=== PATIENT | female | born 1975 | race Caucasian/White ===

== ENCOUNTER 2022-08-18 17:03 | Emergency (ER) | payer MEDICAID, SELFPAY ==
[2022-08-18 17:13] VITALS: BP 114/74; PULSE 79; RESP 18; TEMP 36.4; O2SAT 95; BMI 32.1
--- NOTE | 2022-08-18 17:44 | ED_ITS ---
HPI - General Adult General Chief complaint: Skin/Abscess/Foreign Body Stated complaint: swelling and bruised under armpit area Time Seen by Provider: 08/18/22 17:32 History of Present Illness HPI narrative: Woke up on Fri with painful arnpits. Saw that they were bruised, hurt to touch. As the week progressed, started getting lumps in her armpits and today she has swelling in both armpits. Has not been ill. No recent vaccines, bites or injuries that she is aware of 46-year-old woman presenting to the emergency department with complaint of pain and bumps in both armpits. This is now about 4th day. She has never had this prior. Has not had cystic eruptions elsewhere. There has been no drainage in she has had no fever. Just really hurts to lower her arms now. She does admit that she shaves her armpits which is evident on physical exam. Related Data Home Medications Medication Instructions Recorded Confirmed No Known Home Medications 08/18/22 08/18/22 Allergies Allergy/AdvReac Type Severity Reaction Status Date / Time Penicillins Allergy Hives Verified 08/18/22 17:18 Review of Systems Status of ROS: Reports: 6 or more systems reviewed and unremarkable except as noted in History and below PFSH PFS Social History Smoking Status: Current every day smoker What tobacco products do you use: cigarettes Smoking packs per day: 0.5 Smoking cigarettes per day: 10.0 Do you use any of these nicotine containing products: None Second hand tobacco smoke exposure: No How often do you have a drink containing alcohol: monthly or less How many standard drinks containing alcohol do you have on a typical day: 1 or 2 AUDIT-C Alcohol total score: 1 Non-prescribed substance use: denies use Exam Narrative: Exam Narrative: Pleasant. NAD. Keeps arms somewhat elevated at the shoulders. Breathing easily. I do not see evidence of current cystic acne. Examination of the armpits does not reveal cellulitic change really. There are small eruptions consistent with folliculitis; trace purulence at each point. Faintly erythematous surrounding. Beneath this are BB-sized swellings I would guesstimate. These are in both armpits. She is partially shaved here. Const: Vital Signs, click to edit/add: Vital Signs - 24 hr 08/18/22 17:13 Temperature 97.6 F Pulse Rate [Pulse Oximeter] 79 Respiratory Rate 18 Blood Pressure [Ri ght Upper Arm] 114/74 Pulse Oximetry 95 Documenting provider has reviewed patient's vital signs: yes Course Vital Signs Vital signs: Initial Vital Signs Temperature 97.6 F 08/18/22 17:13 Temperature Source Temporal Artery Scan 08/18/22 17:13 Pulse Rate 79 08/18/22 17:13 Respiratory Rate 18 08/18/22 17:13 Blood Pressure 114/74 08/18/22 17:13 Blood Pressure Mean 87 08/18/22 17:13 Blood Pressure Position Sitting 08/18/22 17:13 Pulse Oximetry 95 08/18/22 17:13 Vital Signs Temperature 97.6 F 08/18/22 17:13 Pulse Rate 79 08/18/22 17:13 Respiratory Rate 18 08/18/22 17:13 Blood Pressure 114/74 08/18/22 17:13 Pulse Oximetry 95 08/18/22 17:13 Temperature 97.6 F 08/18/22 17:13 Pulse Rate 79 08/18/22 17:13 Respiratory Rate 18 08/18/22 17:13 Blood Pressure 114/74 08/18/22 17:13 Pulse Oximetry 95 08/18/22 17:13 Medical Decision Making MDM Narrative Medical decision making narrative: This looks to be a folliculitis with localized eruptions. Nothing fluctuant or large enough to warrant drainage. I think antibiotics would be a good idea at this point. She would like something more than ibuprofen acetaminophen for pain as has not been enough. This is having trouble sleeping and is not prone to keeping her arms elevated the way they need to be to achieve comfort. See patient discharge plan Medical Records Medical records reviewed: Yes I reviewed the patient's medical records Discharge Plan Discharge Clinical Impression: Folliculitis Patient Disposition: Home, Self-Care Condition: Stable Instructions: Folliculitis (ED) Additional Instructions: I do think you will probably have to avoid shaving through the remainder of the summer. As I said maybe a number 1 shaving attachment would be helpful ;) Can continue to take ibuprofen or acetaminophen. Remember that each tablet of Percocet contains 325 mg of acetaminophen. Cephalexin and Percocet from [employer]. Might also consider using Hibiclens as soap in affected areas with shower 2 to 3 times a week. Be seen otherwise for marked increase in pain/redness/swelling, fever. Considering trajectory, it might get a little bit more inflamed over the next day or 2 until antibiotics catch up. Prescriptions: No Action No Known Home Medications Stand Alone Forms: MyHealth Info Instructions
--- OUTSIDE RECORDS SUMMARY | 2022-08-18 18:10 | XMS_ITS | Continuity of Care Document ---
Author Name Unknown Organization [facility] Address [address] [address] [place] [address] Phone Care Team Providers Care Loading Supervisor Name Role Phone Savanna Hernández CRNA Unavailable Unavaila ble Allergies, Adverse Reactions, Alerts Substance Reaction Status Criticality PENICILLIN Active No Information gabapentin Active No Information Medications Medication Instructions Dosage Effective Dates (start - stop) Status Comments sucralfate 1 gram tablet take 1 tablet by oral route 4 times every day on an empty stomach 1 hour before meals and at bedtime 1 G - Active omeprazole 20 mg tablet,delayed release take 1 by oral route every day 1 - Active Procedures Procedure Date Ugi Endo; W/bx 1/mx Level Iv-surg Path Gross/micro 21 New Level 4 Advance Directives Directive Yes / No Effective Date File Name No Information Encounters Encounter Description Practice Location Reason(s) For Visit Diagnoses Date Provider Providers Copied on Encounter [facility], [address] [address], [place], [place], [id number], [place] tel:[phone] [facility] No Information Betty Crorales. [address] [facility], [facility] [place], [id number], [place]. tel:[phone] Referring Provider: Solomon Chapman MD X, [address] [facility] [address], [place], [address] . tel:[phone] [facility], [address] [address], [place], [place], [id number], [place] tel:[phone] [facility] Right upper quadrant abdominal painOther diseases of stomach and duodenum Ari Carbajal. [address] [facility], [facility] [address], [place], [place], [id number], [place]. tel:[phone] Referring Provider: Troy Gilliam MD, [address] [place] [address], [id number]. tel:[phone] [facility] Level 4 [facility], [address] [address], [place], [place], [id number], [place] tel:[phone] [facility] GI Symptoms or Concerns (chief complaint) Abdominal pain in femaleColon cancer screening Leigh Leon. [address] [facility], [facility] [address], [place], [place], [id number], [place]. tel:[phone] Referring Provider: Troy Gilliam MD, [address] [place] [address], [id number]. tel:[phone] [facility], [address] [address], [place], [place], [id number], [place] tel:[phone] [facility] No Information Tiesha Solorio. [address] [facility], [facility] [address], [place], [place], [id number], [place]. tel:[phone] Family History Family Member Type Diagnosis Age At Onset Mother Problem (finding) diverticulitis of colon Immunizations Vaccine Date Status Comments tetanus and diphtheria toxoi ds, adsorbed, preservative free, for adult use (5 Lf of tetanus toxoid and 2 Lf of diphtheria toxoid) administered Note: [facility] bi-direct ional interface ; Source: Other Registry tetanus toxoid, reduced diphtheria toxoid, and acellular pertussis vaccine, adsorbed administered Note: [facility] b i-directional interface ; Source: Other Registry tetanus and diphtheria toxoi ds, adsorbed, preservative free, for adult use (2 Lf of tetanus toxoid and 2 Lf of diphtheria toxoid) administered Note: [facility] bi-direct ional interface ; Source: Other Registry Payers Payer name Insurance type Covered green party ID Authordwight tidodie(s) No Information Social History Type Description Quantity Date Captured Comments Sex Female Smoking Status No Information Chief Complaint And Reason For Visit No Information Reason For Referral Reason For Referral No Information Plan Of Treatment Date Type Action Status Referral Ordered: Colonoscopy Appointment date/timeframe: 02/15/2021 ordered History Of Present Illness Encounter Date Complaint History Of Prese nt Illness GI Symptoms or Concerns This was a virtual visit with Ms. Milka Vernon. She consented to proceed with a virtual visit. She was at home by herself for the visit. We spoke 40 minutes and I spent additional time reviewing her chart and coordinating her care.This is in regard to abdominal pain. She states it is located on the right side under her ribcage. The pain comes on right after eating. She says she usually takes ibuprofen on a daily basis for chronic headaches as well as Tylenol chronically, until just about 10 months ago. The pain started a few months ago. Workup so far has included H. pylori testing, which she tells me was negative. She also underwent an abdominal ultrasound at [facility], which she tells me was inconclusive. So she underwent a HIDA scan with ejection fraction. I do have the report of that and it was normal with an ejection fraction of 88%. She has been taking omeprazole once a day and sucralfate twice a day. She does not think these medications have been helpf Functional Status Date Functional Assessmen t No Information Instructions Date Instruction Additional Infor noemi Gastritis Related to Right upper quadrant abdominal pain 1. We will proceed w ith an upper endoscopy to evaluate for inflammation or ulceration in the stomach or the small intestine.2. She will continue omeprazole and sucralfate as-is for now.3. Avoid NSAIDs.4. Next steps will depend on what the upper endoscopy shows.5. We will also do colonoscopy at the time of the upper endoscopy for colon cancer screening purposes. Related to Abdominal pain in female Assessments Type Assessment Date No Information Patient Care Teams Name Effective Dates (start - stop) Status Members No Information
== END 2022-08-18 18:34 | disposition home or self-care (01) ==
LOC: ED 18:09
PROVIDERS: Emergency Provider Family Medicine
DX: L73.9 Follicular disorder, unspecified (principal)
CPT/HCPCS: 99282; 99283

== ENCOUNTER 2023-04-12 21:32 | Emergency (ER) | payer BC, SELFPAY ==
[2023-04-12 21:42] VITALS: BP 136/96; PULSE 79; RESP 16; TEMP 36.1; O2SAT 97; BMI 36.9
--- NOTE | 2023-04-12 22:03 | ED_ITS ---
HPI - General Adult General Chief complaint: Abdominal Pain Stated complaint: Abdominal Pain Time Seen by Provider: 04/12/23 22:03 History of Present Illness HPI narrative: R upper quadrent abd. pain started about 1.5hours ago. pain comes and goes in waves and feels sharp. no hx of abd. surgery or similar events in the past. no changes in bowel or bladder. 47-year-old woman presenting to the emergency department complaint of right upper abdominal pain. Abrupt onset of sharp upper abdominal pain coming up on 2 hours now. Has to hunch forward when it builds. Seems to come in waves. Colicky. But persistent. Does not usually struggle with heartburn. Has had some nausea. No fever. No vomiting. Had eaten some hours before. Does not have any particular food intolerances. No dysuria frequency urgency. No hematuria. No personal or family history of gallbladder disease. Denies constipation. No diarrhea. Related Data Home Medications Medication Instructions Recorded Confirmed No Known Home Medications 08/18/22 08/18/22 Allergies Allergy/AdvReac Type Severity Reaction Status Date / Time Penicillins Allergy Hives Verified 08/18/22 17:18 Review of Systems Status of ROS: Reports: 6 or more systems reviewed and unremarkable except as noted in History and below [facility] Social History Smoking Status: Current every day smoker What tobacco products do you use: cigarettes Smoking packs per day: 0.5 Smoking cigarettes per day: 10.0 Do you use any of these nicotine containing products: None Second hand tobacco smoke exposure: No How often do you have a drink containing alcohol: monthly or less How many standard drinks containing alcohol do you have on a typical day: 1 or 2 AUDIT-C Alcohol total score: 1 Non-prescribed substance use: denies use Exam Narrative: Exam Narrative: Accompanied by . She is clearly uncomfortable. Sitting hunched over in exam bed. Skin is warm and dry. Lower extremities are without edema. Well-perfused peripherally. Breathing easily. Lungs are clear. Heart in regular rate and rhythm. Abdomen with normoactive bowel sounds is soft without peritoneal sides. Overweight. She is tender to palpation in the epigastrium and her into right upper quadrant as well. Negative Lacy's. No flank pain. Oropharynx is moist. Const: Vital Signs, click to edit/add: Vital Signs - 24 hr 04/12/23 21:42 Temperature 97 F L Pulse Rate [Pulse Oximeter] 79 Respiratory Rate 16 Blood Pressure [Ri ght Upper Arm] 136/96 H Pulse Oximetry 97 Oxygen Delivery Me thod Room Air Documenting provider has reviewed patient's vital signs: yes Course Vital Signs Vital signs: Initial Vital Signs Temperature 97 F L 04/12/23 21:42 Temperature Source Temporal Artery Scan 04/12/23 21:42 Pulse Rate 79 04/12/23 21:42 Respiratory Rate 16 04/12/23 21:42 Blood Pressure 136/96 H 04/12/23 21:42 Blood Pressure Mean 109 H 04/12/23 21:42 Blood Pressure Position Sitting 04/12/23 21:42 Pulse Oximetry 97 04/12/23 21:42 Oxygen Delivery Method Room Air 04/12/23 21:42 Vital Signs Temperature 97 F L 04/12/23 21:42 Pulse Rate 79 04/12/23 21:42 Respiratory Rate 16 04/12/23 21:42 Blood Pressure 136/96 H 04/12/23 21:42 Pulse Oximetry 97 04/12/23 21:42 Oxygen Delivery Method Room Air 04/12/23 21:42 Temperature 97 F L 04/12/23 21:42 Pulse Rate 79 04/12/23 21:42 Respiratory Rate 16 04/12/23 21:42 Blood Pressure 136/96 H 04/12/23 21:42 Pulse Oximetry 97 04/12/23 21:42 Oxygen Delivery Method Room Air 04/12/23 21:42 Medications Administered Medications: Discontinued Medications Generic Name Dose Route Start Last Admin Trade Name Freq PRN Reason Stop Dose Admin Sodium Chloride 1,000 mls @ 1,000 mls/hr 04/12/23 22:11 04/12/23 23:36 0.9 % Sodium Chloride 1000 Ml IV 04/12/23 23:10 Infused .Q1H ONE Infusion Ketorolac Tromethamine 30 mg 04/12/23 22:11 04/12/23 22:35 Ketorolac 30 Mg/Ml Inj IVP 04/12/23 22:12 30 mg ONCE ONE Administration Morphine Sulfate 4 mg 04/12/23 22:11 04/12/23 22:36 Morphine 4 Mg/Ml Inj IVP 04/12/23 22:12 4 mg ONCE ONE Administration Ondansetron HCl 4 mg 04/12/23 22:11 04/12/23 22:36 Ondansetron 2 Mg/Ml Inj IVP 04/12/23 22:12 4 mg ONCE ONE Administration Medical Decision Making MDM Narrative Medical decision making narrative: Reproducibility does suggest more intra-abdominal process than cardiac. She does not drink alcohol. Think less likely pancreatic and more likely biliary colic. Potentially life-threatening aneurysm. No radicular symptoms. Could simply be some GERD with esophageal irritation. Check labs. Give IV fluids. She is uncomfortable enough I would initially try to control this pain with morphine. Ordering morphine ketorolac and Zofran. Overall improved though starts to build a little bit over time in the emergency department. Labs are reassuring though with slightly elevated ALT. Normal D- dimer less likely vascular issue. Urinalysis without evidence of infection I did place bedside ultrasound/point of care. Appears to me that there is some gallbladder sludge. Negative Lacy's. I can not appreciate thickened or inflamed gallbladder wall. We did talk about requesting formal ultrasound here today. Think this also can be followed up outpatient. Her preference was to return home. Will try to arrange outpatient ultrasound. See patient discharge plan Lab Data Lab results reviewed: Yes I reviewed the patient's lab results Labs: Lab Results 04/12/23 04/12/23 04/12/23 Range/Units 22:12 22:15 22:15 WBC 9.74 (4.50-11.00) K/uL RBC 5.10 (4.00-5.20) m/uL Hgb 15.1 (12.0-16.0) gm/dL Hct 44.7 (33.0-51.0) % MCV 88 (80-100) fL MCH 30 (26-34) pg MCHC 34 (32-36) gm/dL RDW Coeff of Inez 12.3 (11.5-15.5) % Plt Count 225 (140-440) K/uL Neut % (Auto) 54.5 (42.0-72.0) % Lymph % (Auto) 35.9 (20-44) % [place] % (Auto) 5.7 (0.0-11.0) % Eos % (Auto) 3.5 (0.0-7.0) % Baso % (Auto) 0.3 (0.0-3.0) % Neut # (Auto) 5.30 (1.7-7.0) K/uL Lymph # (Auto) 3.50 H (0.90-2.90) K/uL [place] # (Auto) 0.60 (0.00-0.90) K/UL Eos # (Auto) 0.34 (0.00-0.50) K/uL Baso # (Auto) 0.03 (0.00-0.30) K/uL Abs Immat Gran (auto) 0.01 (0.00-0.30) K/uL Imm/Tot Granulo (auto) 0.1 % D-Dimer Quant (PE/DVT) 0.36 (0.00-0.50) ug/ml Sodium Cancelled 139 Potassium Cancelled Chloride Carbon Dioxide Anion Gap BUN Creatinine Estimated Creat Clear Estimated GFR Glucose Calcium Total Bilirubin (0.1-1.5) mg/dL Direct Bilirubin (0.0-0.5) mg/dL AST (12-35) U/L ALT (4-35) U/L Alkaline Phosphatase (40-150) U/L Troponin I (0.01-0.04) ng/mL C-Reactive Protein NT-Pro-B Natriuret Pep pg/mL Total Protein (6.0-8.3) g/dL Albumin (3.3-5.0) g/dL Lipase (23-300) U/L Urine Color (Yellow) Urine Appearance (Clear) Urine pH (5.0-8.5) Ur Specific [place] (1.000-1.030) Urine Protein (Negative) Urine Glucose (UA) (Negative) Urine Ketones (Negative) Urine Blood (Negative) Urine Nitrite (Negative) Urine Bilirubin (Negative) Urine Urobilinogen (0.2-1.0) Ur Leukocyte Esterase (Negative) Urine RBC (0-2) Urine WBC (0-5) Ur Squamous Epith Cells (None-Few) Urine Bacteria (None) POC Troponin I 0.00 L (0.01-0.04) ng/ml 04/12/23 04/12/23 04/12/23 Range/Units 22:15 22:15 22:15 WBC (4.50-11.00) K/uL RBC (4.00-5.20) m/uL Hgb (12.0-16.0) gm/dL Hct (33.0-51.0) % MCV (80-100) fL MCH (26-34) pg MCHC (32-36) gm/dL RDW Coeff of Inez (11.5-15.5) % Plt Count (140-440) K/uL Neut % (Auto) (42.0-72.0) % Lymph % (Auto) (20-44) % [place] % (Auto) (0.0-11.0) % Eos % (Auto) (0.0-7.0) % Baso % (Auto) (0.0-3.0) % Neut # (Auto) (1.7-7.0) K/uL Lymph # (Auto) (0.90-2.90) K/uL [place] # (Auto) (0.00-0.90) K/UL Eos # (Auto) (0.00-0.50) K/uL Baso # (Auto) (0.00-0.30) K/uL Abs Immat Gran (auto) (0.00-0.30) K/uL Imm/Tot Granulo (auto) % D-Dimer Quant (PE/DVT) (0.00-0.50) ug/ml Sodium Potassium 3.9 Chloride Cancelled 107 Carbon Dioxide Cancelled 23 Anion Gap Cancelled BUN Creatinine Estimated Creat Clear Estimated GFR Glucose Calcium Total Bilirubin (0.1-1.5) mg/dL Direct Bilirubin (0.0-0.5) mg/dL AST (12-35) U/L ALT (4-35) U/L Alkaline Phosphatase (40-150) U/L Troponin I (0.01-0.04) ng/mL C-Reactive Protein NT-Pro-B Natriuret Pep pg/mL Total Protein (6.0-8.3) g/dL Albumin (3.3-5.0) g/dL Lipase (23-300) U/L Urine Color (Yellow) Urine Appearance (Clear) Urine pH (5.0-8.5) Ur Specific [place] (1.000-1.030) Urine Protein (Negative) Urine Glucose (UA) (Negative) Urine Ketones (Negative) Urine Blood (Negative) Urine Nitrite (Negative) Urine Bilirubin (Negative) Urine Urobilinogen (0.2-1.0) Ur Leukocyte Esterase (Negative) Urine RBC (0-2) Urine WBC (0-5) Ur Squamous Epith Cells (None-Few) Urine Bacteria (None) POC Troponin I (0.01-0.04) ng/ml 04/12/23 04/12/23 04/12/23 Range/Units 22:15 22:15 22:15 WBC (4.50-11.00) K/uL RBC (4.00-5.20) m/uL Hgb (12.0-16.0) gm/dL Hct (33.0-51.0) % MCV (80-100) fL MCH (26-34) pg MCHC (32-36) gm/dL RDW Coeff of Inez (11.5-15.5) % Plt Count (140-440) K/uL Neut % (Auto) (42.0-72.0) % Lymph % (Auto) (20-44) % [place] % (Auto) (0.0-11.0) % Eos % (Auto) (0.0-7.0) % Baso % (Auto) (0.0-3.0) % Neut # (Auto) (1.7-7.0) K/uL Lymph # (Auto) (0.90-2.90) K/uL [place] # (Auto) (0.00-0.90) K/UL Eos # (Auto) (0.00-0.50) K/uL Baso # (Auto) (0.00-0.30) K/uL Abs Immat Gran (auto) (0.00-0.30) K/uL Imm/Tot Granulo (auto) % D-Dimer Quant (PE/DVT) (0.00-0.50) ug/ml Sodium Potassium Chloride Carbon Dioxide Anion Gap 9 BUN Cancelled 25 H Creatinine Cancelled 0.7 Estimated Creat Clear Cancelled Estimated GFR Glucose Calcium Total Bilirubin (0.1-1.5) mg/dL Direct Bilirubin (0.0-0.5) mg/dL AST (12-35) U/L ALT (4-35) U/L Alkaline Phosphatase (40-150) U/L Troponin I (0.01-0.04) ng/mL C-Reactive Protein NT-Pro-B Natriuret Pep pg/mL Total Protein (6.0-8.3) g/dL Albumin (3.3-5.0) g/dL Lipase (23-300) U/L Urine Color (Yellow) Urine Appearance (Clear) Urine pH (5.0-8.5) Ur Specific [place] (1.000-1.030) Urine Protein (Negative) Urine Glucose (UA) (Negative) Urine Ketones (Negative) Urine Blood (Negative) Urine Nitrite (Negative) Urine Bilirubin (Negative) Urine Urobilinogen (0.2-1.0) Ur Leukocyte Esterase (Negative) Urine RBC (0-2) Urine WBC (0-5) Ur Squamous Epith Cells (None-Few) Urine Bacteria (None) POC Troponin I (0.01-0.04) ng/ml 04/12/23 04/12/23 04/12/23 Range/Units 22:15 22:15 22:15 WBC (4.50-11.00) K/uL RBC (4.00-5.20) m/uL Hgb (12.0-16.0) gm/dL Hct (33.0-51.0) % MCV (80-100) fL MCH (26-34) pg MCHC (32-36) gm/dL RDW Coeff of Inez (11.5-15.5) % Plt Count (140-440) K/uL Neut % (Auto) (42.0-72.0) % Lymph % (Auto) (20-44) % [place] % (Auto) (0.0-11.0) % Eos % (Auto) (0.0-7.0) % Baso % (Auto) (0.0-3.0) % Neut # (Auto) (1.7-7.0) K/uL Lymph # (Auto) (0.90-2.90) K/uL [place] # (Auto) (0.00-0.90) K/UL Eos # (Auto) (0.00-0.50) K/uL Baso # (Auto) (0.00-0.30) K/uL Abs Immat Gran (auto) (0.00-0.30) K/uL Imm/Tot Granulo (auto) % D-Dimer Quant (PE/DVT) (0.00-0.50) ug/ml Sodium Potassium Chloride Carbon Dioxide Anion Gap BUN Creatinine Estimated Creat Clear 101.60 Estimated GFR Cancelled 106 Glucose Cancelled 132 H Calcium Cancelled Total Bilirubin (0.1-1.5) mg/dL Direct Bilirubin (0.0-0.5) mg/dL AST (12-35) U/L ALT (4-35) U/L Alkaline Phosphatase (40-150) U/L Troponin I (0.01-0.04) ng/mL C-Reactive Protein NT-Pro-B Natriuret Pep pg/mL Total Protein (6.0-8.3) g/dL Albumin (3.3-5.0) g/dL Lipase (23-300) U/L Urine Color (Yellow) Urine Appearance (Clear) Urine pH (5.0-8.5) Ur Specific [place] (1.000-1.030) Urine Protein (Negative) Urine Glucose (UA) (Negative) Urine Ketones (Negative) Urine Blood (Negative) Urine Nitrite (Negative) Urine Bilirubin (Negative) Urine Urobilinogen (0.2-1.0) Ur Leukocyte Esterase (Negative) Urine RBC (0-2) Urine WBC (0-5) Ur Squamous Epith Cells (None-Few) Urine Bacteria (None) POC Troponin I (0.01-0.04) ng/ml 04/12/23 04/12/23 04/12/23 Range/Units 22:15 22:15 23:15 WBC (4.50-11.00) K/uL RBC (4.00-5.20) m/uL Hgb (12.0-16.0) gm/dL Hct (33.0-51.0) % MCV (80-100) fL MCH (26-34) pg MCHC (32-36) gm/dL RDW Coeff of Inez (11.5-15.5) % Plt Count (140-440) K/uL Neut % (Auto) (42.0-72.0) % Lymph % (Auto) (20-44) % [place] % (Auto) (0.0-11.0) % Eos % (Auto) (0.0-7.0) % Baso % (Auto) (0.0-3.0) % Neut # (Auto) (1.7-7.0) K/uL Lymph # (Auto) (0.90-2.90) K/uL [place] # (Auto) (0.00-0.90) K/UL Eos # (Auto) (0.00-0.50) K/uL Baso # (Auto) (0.00-0.30) K/uL Abs Immat Gran (auto) (0.00-0.30) K/uL Imm/Tot Granulo (auto) % D-Dimer Quant (PE/DVT) (0.00-0.50) ug/ml Sodium Potassium Chloride Carbon Dioxide Anion Gap BUN Creatinine Estimated Creat Clear Estimated GFR Glucose Calcium 10.0 Total Bilirubin 0.4 (0.1-1.5) mg/dL Direct Bilirubin 0.2 (0.0-0.5) mg/dL AST 30 (12-35) U/L ALT 39 H (4-35) U/L Alkaline Phosphatase 96 (40-150) U/L Troponin I < 0.01 L (0.01-0.04) ng/mL C-Reactive Protein Cancelled 1.0 NT-Pro-B Natriuret Pep 23 pg/mL Total Protein 7.7 (6.0-8.3) g/dL Albumin 4.5 (3.3-5.0) g/dL Lipase 66 (23-300) U/L Urine Color Yellow (Yellow) Urine Appearance Clear (Clear) Urine pH 5.5 (5.0-8.5) Ur Specific [place] >= 1.030 (1.000-1.030) Urine Protein Negative (Negative) Urine Glucose (UA) Negative (Negative) Urine Ketones Negative (Negative) Urine Blood Negative (Negative) Urine Nitrite Negative (Negative) Urine Bilirubin Negative (Negative) Urine Urobilinogen 0.2 (0.2-1.0) Ur Leukocyte Esterase Negative (Negative) Urine RBC 0-2 (0-2) Urine WBC 0-2 (0-5) Ur Squamous Epith Cells Few (None-Few) Urine Bacteria Few A (None) POC Troponin I (0.01-0.04) ng/ml ECG Data Attestation: I personally reviewed and interpreted this ECG as follows: (Normal sinus rhythm a rate of 72. No reciprocal changes) Discharge Plan Discharge Clinical Impression: Abdominal pain, RUQ Patient Disposition: Home w/ Parent or Adult Condition: Improved Additional Instructions: Focus on hydration. I would consider a grinding machine operator automatic diet over the next 36 hours or so. Return for uncontrolled pain, intractable vomiting, associated fever. We will reach out to you on Friday to try to coordinate this ultrasound. As I said I am working in the emergency department on Friday. Ruba and Jeffery from [employer]. Prescriptions: No Action No Known Home Medications Follow Up/Referrals: Provider,Not a Local [Primary Care Provider] - Stand Alone Forms: [employer] Info Instructions
--- NOTE | 2023-04-12 22:11 | XR_ITS ---
Final Report Patient: IMELDA DELA CRUZ Facility:?[facility] Patient ID:?[id number] Site Patient ID:?[id number] Site :?[id number] Study:?XRay Chest 1V PORTABLE-04/12/2023 10:30:02 PM Ordering Physician:KEYLA Final Report: INDICATION: Epigastric chest pain TECHNIQUE: Chest radiograph 1 view COMPARISON: None FINDINGS: The sensitivity and specificity of the exam are moderately limited by the patient`s body habitus. Mediastinum: The mediastinum is normal in appearance. The heart silhouette is normal in size and morphology. Lung: Both lungs are unremarkable in appearance. No sign of pleural effusion seen. No pneumothorax is identified. Bone and Soft tissue: Unremarkable for age. IMPRESSION: 1. No acute cardiopulmonary disease is seen. Dictated by: Eric Gonzales MD @ 04/12/2023 22:51:36 (Electronic Signature)
--- OUTSIDE RECORDS SUMMARY | 2023-04-12 22:22 | XMS_ITS | Patient Health Record ---
Author Name Unknown Organization [facility] Address [address] [place] [address] [place] [address] Care Team Providers Care District Manager Major Accounts Sales Name Role Phone TEJAS CRAWFORD MD Primary Care Provider Unavailab le SELF, SELF Unavailable Unavailable Jaqueline Dawson Unavailable [phone] ALLERGIES Allergen (clinical drug ingredient) Drug/Non Drug Allergy documented on EMR Reaction Allergy Type Onset Date Status nortriptyline Nortriptyline HCl weight nia/tinnitus Drug Allergy Active topiramate Topiramate Mood swings & ineffective for headaches Drug Allergy Active Penicillin hives Drug Allergy Active REASON FOR REFERRAL Reason CHRISTINE Diagnosis 1 Obesity (BMI 30-39.9 ) (E66.9) Referral Organization [facility] Referring Provider First Name Jaqueline Referring Provider Last Name Samir Referring Provider Speciality Nurse Carina peacock Referred Provider HAYDEE CUNHA Referred Provider Specialty Market Sales Manager General Notes Kera Chaudhary 10/14 09:18:45 AM > Pt needs appt with Jet HUBBARD Rosalie 10/14/2022 09:19:41 AM > Faxed Jet chaves Rosalie 03/28/2023 02:02:12 PM > See TE 03/28/23- address referral Referral Priority Routine Referral Appointment Date 10/10/2022 Reason psych eval Diagnosis 1 Obesity (BMI 30-39.9 ) (E66.9) [facility] Referring Provider First Name Jaqueline Referring Provider Last Name Samir Referring Provider Speciality Nurse Prac leftyr Referred Provider Specialty Psychologist General Notes Kera Chaudhary 10/14 08:32:51 AM >patient will call with Jet parisi Rosalie 03/28/2023 02:02:12 PM > See TE 03/28/23- address referral Referral Priority Routine Referral Appointment Date 10/10/2022 Reason Tier 3 >4 - HOLD til l nicotine testing Diagnosis 1 Obesity (BMI 30-39.9 ) (E66.9) Referral Organization [facility] [place] [facility] Referring Provider First Name Jaqueline Referring Provider Last Name Samir Referring Provider Speciality Nurse Carina peacock Referred Provider Specialty SGS Surgery Scheduling General Notes Kera Chaudhary 10/18 03:12:08 PM >Smoking Cessation. Patient urged to quit all forms of inhalants & nicotine now if preparation for surgery & for lifelong health outcomes. Will need nicotine testing prior to EGD being scheduled, Kera Chaudhary 03/28/2023 02:02:12 PM > See TE 03/28/23- address referral Referral Priority Routine Referral Appointment Date 10/10/2022 MEDICATIONS Medication SIG (Take, Route, Frequency, Duration) Notes Start Date End Date Status Ibuprofen 200 MG 3 tablets Orally 2x a day alternate with acetaminophen for headaches Active Melatonin 10 MG as directed Orally Active Multi For Her - as directed Orally Active Acetaminophen 500 MG 2 tablets Orally every 6 hrs alternate with ibuprofen Active Cholecalciferol 50 MCG (2000 UT) 1 capsule Orally Once a day Active Turmeric 500 MG 6 capsules Orally daily 2x 1500mg Active SOCIAL HISTORY Tobacco Use: Social History Observation Description Date Details (start date - stop date) Former Smoker NA - NA Sex Assigned At : Social History Observation Description Sex Assigned At Unknown Tobacco Use/Smoking Question Answer Notes Are you a former smoker Tobacco use other than smoking: Question Answer Notes Are you an other tobacco user? No PROBLEMS Problem Type ICD Code Onset Dates Problem Status W/U Status Risk SNOMED Code Notes Problem Obesity (BMI 30-39.9) (E66.9) Active confirmed 392915063 Problem BMI 35.0-35.9,adult (Z68.35) Active confirmed 753756485 Problem High cholesterol (E78.00) Active confirmed 59249978 Problem NAFLD (nonalcoholic fatty liver disease) (K76.0) Active confirmed 7782084868 VITAL SIGNS Heart Rate 68 /min 10/10/2022 Temperature 97.6 degrees Fahrenheit 10/10/2022 Respiratory Rate 16 /min 10/10/2022 Height-cm 177.17 cm 10/10/2022 Blood pressure diastolic 76 mm Hg 10/10/2022 Weight-kg 110.22 kg 10/10/2022 Height 69.75 in 10/10/2022 Blood pressure systolic 112 mm Hg 10/10/2022 Weight 243.0 lbs 10/10/2022 BMI 35.11 kg/m2 10/10/2022 Encounters Encounter Location Date Provider Diagnosis JOYCE Gonzalez at [address] [place] [address] 10/10/2022 Jaqueline Dawson NAFLD (nonalcoholic fatty liver disease) K76.0 ; Obesity (BMI 30-39.9) E66.9 ; BMI 35.0-35.9,adult Z68.35 and High cholesterol E78.00 JOYCE Gonzalez at [address] [place] [address] 09/24/2022 Jaqueline COOK [place] at [address] [place] [phone] 09/25/2022 Jaqueline COOK [place] at [address] [place] [address] 10/14/2022 Jaqueline COOK [place] at [address] [place] [phone] 11/08/2022 Jaqueline [place] at [address] [place] [address] 02/28/2023 Jaqueline [place] at [address] [place] [phone] 03/28/2023 Jaqueline Dawson ASSESSMENTS Encounter Date Diagnosis Assessment Notes Treatment Notes Treatment Clinical Notes 10/10/2022 Obesity (BMI 30-39.9) (ICD-10 - E66.9) 10/10/2022 NAFLD (nonalcoholic fatty liver disease) (ICD-10 - K76.0) 10/10/2022 BMI 35.0-35.9,adult (ICD-10 - Z68.35) 10/10/2022 High cholesterol (ICD-10 - E78.00) PLAN OF TREATMENT No Information Insurance Providers Payer Name Payer Address Payer Phone Subscriber Number Group Number Insured Name Patient Relationship to Insured Coverage Start Date Coverage End Date [facility] [address] [place] [phone] [id number] EMILYNAYELYJOSIAHIMELDA GUTIERREZ Self - patient is the insured MEDICAL (GENERAL) HISTORY Medical History History ICD Code headache Fatty infiltration of the liver with mil d hepatomegaly Cervical radiculopathy Carpal tunnel syndrome, unspecified late rality Depression, major, single episode, moder ate ( Endometriosis Peptic ulcer disease Gastroesophageal reflux disease, esophag itis presence not specified Anal skin tag Acute bilateral low back pain with left- sided sciatica Perimenopause Surgical History Surgery Date(Month/Year) Lumbar 3-4 Bilateral Hemilaminectomy And Microdiscectomy 11/16/2016 LIGATE FALLOPIAN TUBE 10/01 TOTAL ABDOMINAL HYSTERECTOMY appendectomy Colonoscopy 07/04/15 Hospitalization History Reason Date(Month/Year) surgery
--- OUTSIDE RECORDS SUMMARY | 2023-04-12 22:22 | XMS_ITS | Clinical Summary ---
Author Name Unknown Organization [facility] Address [address] [place] [id number] Care Team Providers Care Section Weaver Name Role Phone No Ref-Primary, Physician Primary Care Provider Troy Gilliam Unavailable Allergies Active Allergy Reactions Criticality Noted Date Comments Codeine 03/05/2017 Other reaction(s): Sedation Gabapentin Tinnitus 11/06/2015 Penicillins Hives 10/31/2015 Medications Medication Sig Dispensed Refills Start Date End Date Status cyclobenzaprine (FLEXERIL) 10 MG tablet Take 0.5-1 tablets (5-10 mg) by mouth 3 times daily as needed for muscle spasms 20 tablet 0 01/08/2018 Active Additional Information Patient not taking.Reported on 09/01/2020 senna-docusate (SENOKOT-S;PERICOL AMAN) 8.6-50 MG per tablet Take 1 tablet by mouth 2 times daily as needed for constipation 30 tablet 0 01/08/2018 Active Additional Information Patient not taking.Reported on 09/01/2020 ibuprofen (ADVIL/MOTRIN) 800 MG tablet Take 1 tablet (800 mg) by mouth every 8 hours as needed for moderate pain 30 tablet 0 06/22/2018 Active Additional Information Patient not taking.Reported on 01/08/2021 multivitamin w/minerals (THERA-VIT-M) tablet Take 1 tablet by mouth daily 0 Active cholecalciferol (VITAMIN D3) 25 mcg (1000 units) capsule Take 1 capsule by mouth daily 2000 Units Daily 0 Active UNABLE TO FIND Tumeric 1500mg PO Daily 0 Active sucralfate (CARAFATE) 1 GM tablet Take 1 tablet (1 g) by mouth 4 times daily as needed for nausea (epigastric discomfort) 60 tablet 0 11/08/2020 Active ondansetron (ZOFRAN ODT) 4 MG ODT tab Take 1 tablet (4 mg) by mouth every 8 hours as needed for nausea 10 tablet 0 11/08/2020 Active omeprazole (PRILOSEC) [address] capsuleIndications :Gastric Ulcer Take 20 mg by mouth daily 0 Active Active Problems Problem Noted Date Diagnosed Date Chronic migraine without aur a, intractable, without status migrainosus 08/31/2020 Analgesic overuse headache 04/24/2017 Chronic headache 04/24/2017 Social History Tobacco Use Types Packs/Day Years Used Date Smoking Tobacco: Never Assessed Adolescent Education Answer Date Record ed Getting School Help Needed Not on file 12/11 Sex and Gender Information Value Date Recorded Sex Assigned at Not on file Gender Identity Not on file Sexual Orientation Not on file Last Filed Vital Signs Vital Sign Reading Time Taken Comments Blood Pressure 116/86 01/08/2021 8:14 AM PIPE BUFFER Pulse 78 01/08/2021 8:14 AM PIPE BUFFER Temperature 36.3 ??C (97.4 ??F) 01/08/2021 8:14 AM CS T Respiratory Rate 16 01/08/2021 8:14 AM PIPE BUFFER Oxygen Saturation 93% 01/08/2021 8:14 AM PIPE BUFFER Inhaled Oxygen Concentration - - Weight 95.3 kg (210 lb) 06/22/2018 9:48 PM CDT Height 177.8 cm (5' 10) 10/31/2015 9:07 AM CDT Body Mass Index 30.13 10/31/2015 9:07 AM CDT Plan of Treatment Health Maintenance Due Date Last Done Comments ADVANCE CARE PLANNING 1973 ANNUAL REVIEW OF HM ORDERS 1973 CT COLONOGRAPHY 1973 FIT 1973 FLEX SIG 1973 HEPATITIS B IMMUNIZATION (1 of 3 - 3-dose series) 1973 MAMMO SCREENING 1973 YEARLY PREVENTIVE VISIT 1973 sDNA (Cologuard) 1973 COVID-19 Vaccine (#1) 06/05/1974 HIV SCREENING 1988 HEPATITIS C SCREENING 12/06/1991 PAP 1994 LIPID 2013 INFLUENZA VACCINE (#1) 2022 PHQ-2 (once per calendar year) 2023 GLUCOSE 11/09/2023 11/08/2020, 01/07/2018 ZOSTER IMMUNIZATION (1 of 2) 12/06/2023 COLONOSCOPY 07/03/2025 07/04/2015 COLORECTAL CANCER SCREENING 07/03/2025 DTAP/TDAP/TD IMMUNIZATION (4 - Td or Tdap) 11/12/2026 11/12/2016, 12/30/2014, 02/12/2006, Additional history exists HPV IMMUNIZATION Aged Out No longer e ligible based on patient's age to complete this topic IPV IMMUNIZATION Aged Out No longer e ligible based on patient's age to complete this topic MENINGITIS IMMUNIZATION Aged Out No l onger eligible based on patient's age to complete this topic Pneumococcal Vaccine: Pediatrics (0 to 5 Years) and At-Risk Patients (6 to 64 Years) Aged Out No longer eligible based on patient's age to complete this topic RSV MONOCLONAL ANTIBODY Aged Out No l onger eligible based on patient's age to complete this topic Care Teams Section Weaver Relationship Specialty Start Date End Date No Ref-Primary, Physician PCP - General 10/31/15 Troy Gilliam [address] [id number] Family Medicine 11/08/20
--- OUTSIDE RECORDS SUMMARY | 2023-04-12 22:22 | XMS_ITS | Encounter Summary ---
Author Name Unknown Organization [facility] Address [address] [place] [id number] Care Team Providers Care Underliner Name Role Phone No Ref-Primary, Physician Primary Care Provider Troy Gilliam Unavailable Encounter Details Date Type Department Care Team (Late st Contact Info) Description 11/08/2020 Documentation Only INTERFACED REPORT Unknown, Provider Social History Tobacco Use Types Packs/Day Years Used Date Smoking Tobacco: Never Assessed Sex and Gender Information Value Date Recorded Sex Assigned at Not on file Gender Identity Not on file Sexual Orientation Not on file COVID-19 Exposure Response Date Recorded In the last month, have you been in contact with someone who was confirmed or suspected to have Coronavirus / COVID-19? No / Unsure 11/08/2020 3:25 PM CDT documented as of this encounter Plan of Treatment Not on file documented as of this encounter Visit Diagnoses Not on filedocumented in this encounter Additional Health Concerns Infection Onset Date Last Indicated Resolved Time Rule Out COVID-19 11/08/2020 11/08/2020 11/08/2020 7:53 PM CDT documented as of this encounter Care Teams Underliner Relationship Specialty Start Date End Date No Ref-Primary, Physician PCP - General 10/31/15 Troy Gilliam [address] [address] Family Medicine 11/08/20 documented as of this encounter
--- OUTSIDE RECORDS SUMMARY | 2023-04-12 22:22 | XMS_ITS | Referral Summary ---
Author Name Unknown Organization [facility] Address [address] [place] [id number] Care Team Providers Care Sand Operator Name Role Phone No Ref-Primary, Physician Primary [...] Comments Blood Pressure 116/86 01/08/2021 8:14 AM PROGRAM COUNSELOR Pulse 78 01/08/2021 8:14 AM PROGRAM COUNSELOR Temperature 36.3 ??C (97.4 ??F) 01/08/2021 8:14 AM CS T Respiratory Rate 16 01/08/2021 8:14 AM PROGRAM COUNSELOR Oxygen Saturation 93% 01/08/2021 8:14 AM PROGRAM COUNSELOR Inhaled Oxygen Concentration - - Weight 95.3 kg (210 lb) 06/22/2018 9:48 PM CDT Height 177.8 cm (5' 10) 10/31/2015 9:07 AM CDT Body Mass Index 30.13 10/31/2015 9:07 AM CDT Plan of Treatment Not on file Care Teams Sand Operator Relationship Specialty Start Date End Date No Ref-Primary, Physician PCP - General 10/31/15 Troy Gilliam [address] [address] Family Medicine 11/08/20
--- OUTSIDE RECORDS SUMMARY | 2023-04-12 22:22 | XMS_ITS | Clinical Summary ---
Author Name Unknown Organization [facility] Address [place], [place] [address] Care Team Providers Care Leasing Representative Name Role Phone Troy Gilliam MD Primary Care Provider + Allergies Active Allergy Reactions Criticality Noted Date Comments Codeine Sedation 03/05/2017 Gabapentin Tinnitus 11/06/2015 Penicillin G Benzathin,Procain Hives 11/21 Penicillins Hives 10/31/2015 Topiramate *Unknown 01/29/2022 Medications Medication Sig Dispensed Refills Start Date End Date Status acetaminophen (TYLENOL EXTRA STRGTH) 500 mg tablet Take 500 mg by mouth. 0 Active cholecalciferol (VITAMIN D3) 1,000 unit capsule Take 1 Capsule by mouth. 0 Active lidocaine-prilocaine (EMLA) 2.5-2.5 % cream SMALL AMOUNT TO LOWER BACK TWO TIMES A DAY NEEDED 0 04/20/2022 Active Active Problems Problem Noted Date Diagnosed Date Acute bilateral low back pain with bilateral sci atica 11/06/2016 Lumbar disc herniation with radiculopathy 2016 Tobacco use 09/30/2016 Memory loss 11/06/2015 Tinnitus 11/06/2015 Chronic daily headache 09/21/2015 Resolved Problems Problem Noted Date Diagnosed Date Resolved Date Depression, major, single episode, moderate 09/21/2015 11/06/2015 Immunizations Name Administration Dates Next Due Td, Preservative Free (age >= 7 Years) 7 Tdap 02/12/2006 Family History Medical History Relation Name Comments Hypertension Brother Diabetes Father Unknown Father Cancer-breast Maternal Aunt Diabetes Mother Hypertension Mother Unknown Mother Relation Name Status Comments Brother Father Maternal Aunt Mother Social History Tobacco Use Types Packs/Day Years Used Date Smoking Tobacco: Every Day Cigarettes 1 37.1 Started: 02/24/1986 Smokeless Tobacco: Never Tobacco Cessation:Ready to Q uit: No; Counseling Given: Yes Alcohol Use Standard Drinks/Week Comments No 0 (1 standard drink = 0.6 oz pur e alcohol) Sex and Gender Information Value Date Recorded Sex Assigned at Not on file Gender Identity Not on file Sexual Orientation Not on file Obstetrics History Para Term AB IAB SAB Ectopic Multiple Livin g Live Births 5 3 3 3 3 Date Outcome GA Total Labor Labor/2nd/3rd Weight Sex Delivery Anes PTL Marissa A1 A5 Name Cl in Term Vag Alicia ng Term Vag Alicia ng Term Vag Alicia ng SPONTANE O US SPONTANE O US Last Filed Vital Signs Vital Sign Reading Time Taken Comments Blood Pressure 116/77 08/12/2019 3:59 PM CDT Pulse 96 08/12/2019 3:59 PM CDT Temperature 36.6 ??C (97.9 ??F) 08/12/2019 3:59 PM CD T Respiratory Rate 20 08/12/2019 3:59 PM CDT Oxygen Saturation 97% 08/12/2019 3:59 PM CDT Inhaled Oxygen Concentration - - Weight 108.9 kg (240 lb) 05/20/2022 10:23 AM CDT Height 177.8 cm (5' 10) 05/20/2022 10:23 AM CDT Body Mass Index 34.44 05/20/2022 10:23 AM CDT Plan of Treatment Health Maintenance Due Date Last Done Comments COVID-19 vaccine series (#1) 06/05/1974 HIV for age 15-65 1988 Hepatitis C screening for age 18-79 12/06/1991 Depression screening for age 12+ 08/08/2017 08/08/2016, 03/25/2016, 11/06/2015, Additional history exists Mammogram for age 45-75 2018 08/29/2016 Lipids for age 45-75 11/05/2020 11/06/2015 Influenza for age 9-49 10/25/2022 11/12/2016, 2015 BMI (ht and wt on same day) for age 18+ 05/21/2023 05/20/2022, 04/04/2018, 01/23/2018, Additional history exists Colonoscopy through age 75 07/03/2025 07/04/2015 Tetanus booster 11/12/2026 11/12/2016, 02/12/2006 Tdap Completed 02/12/2006 Pneumococcal series for age 6-64 Aged Out No longer eligible based on patient's age to complete this topic Advance Directives Latest Code Status on File Code Status Date Activated Date Inactivated Comments Full Code 11/16/2016 10:26 AM 11/17/2016 5:35 PM Code Status History Code Status Date Activated Date Inactivated Comments Full Code 11/16/2016 6:44 AM 11/16/2016 10:26 AM Care Teams Leasing Representative Relationship Specialty Start Date End Date Troy Gilliam MD PCP - General Family Practice 05/06/22
--- OUTSIDE RECORDS SUMMARY | 2023-04-12 22:23 | XMS_ITS | Data Portability ---
Author Name Unknown Address [address] [place] [address] Phone [phone] Organization [facility] Address [address] [place] [address] Care Team Providers Care Delivery Driver Name Role Phone ALYSSA RAMIREZ Primary Care Provider TEJAS CRAWFORD Referring Provider [phone] Assessment Encounter Date Assessment Date Assessment LastModified by Organization Details LastModified Time 10/24/2016 10/24/2016 Milka Vernon presents for evaluation of low back pain and bilateral lower extremity pain. This occurred after lifting and twisting movement. Symptoms are present for one month and have slowly started to improve. She has slowly been improving with conservative therapies. I have recommended the patient start a course of physical therapy. We will then have her return to clinic in approximately six to eight weeks if she has no improvement with this. [email or web address] Not available 10/24/2016 22:02:31 11/06/2016 11/06/2016 Milka Vernon presents with persistent bilateral S1 radiculopathy that has significantly worsened over the last week. She was unable to tolerate physical therapy. The patient was seen and discussed with Dr. Cavanaugh. At this time, I have recommended she proceed with an L3-L4 bilateral hemilaminectomy and microdiscectomy. Risks and benefits were discussed with the patient who wishes to proceed. We will have her meet with our surgery coordinator. [email or web address] Not available 11/07/2016 00:14:49 12/16/2016 12/16/2016 Milka Vernon is approximately one month out from bilateral L3-L4 microdiscectomies. She continues to make slow improvements. I have offered her a course of physical therapy, but she would like to hold off at this time. I did not give her any prescriptions. She will give us a call if she has any new or worsening symptoms in the future. [email or web address] Not available 12/16/2016 13:44:24 11/15/2020 11/15/2020 A 44-year-old female with onset of back pain and getting out of bed on September 20, 2020, with left lower extremity radiculopathy. For the most part, her radiculopathy has resolved from when initially appeared after having a steroid pack as well as with muscle relaxer and time, but she is able to recreate that pain again when she overdoes it with ambulating. It is most pronounced in her left leg and is consistent with an L3-L4 dermatome when it happens. Her biggest concern at this point in time is her low back pain and feeling that she is unsure about going back to the gym to continue her exercises. She does feel that her legs have been getting weaker because she is trying to baby her back. Her MRI today was reviewed by myself and Dr. Cavanaugh and there is no significant nerve impingement that can be identified, but she does have some joint effusions at L2-L3 and L4-L5 that potentially could be causing some of her back pain. The patient is a smoker and was advised that it would be helpful for her to stop smoking due to the arthritis in her back and degenerative changes. Dr. Cavanaugh and I discussed with the patient that we recommend that she have bilateral L4-L5 facet injections to see if this helps with her back pain. We also like her to undergo physical therapy, which she would like to do at [facility] as she had previously started her prior back surgery at L3-L4 in October 2016. We will plan to see her back in 6 weeks and see how she is doing. If at that time she is having a back pain, we will consider doing dynamic lumbar x-rays to further assess the stability of her low back, given the grade 1 retrolisthesis of L3 on L4. [email or web address] Not available 11/15/2020 23:08:31 Plan of Treatment Reminders Order Date Submit Date Provider Last Modified By Organization Details Last Modified Time Details Appointments None record ed. Lab None record ed. Referral None record ed. Procedures None record ed. Surgeries None record ed. Imaging None record ed. Medication Orders None record ed. Patient TargetsNo targets recorded. Patient InstructionsNo instructions recorded. Reason for Referral Physical Therapist Referral for Low back pain EVAL AND TREAT LOW BACK PAIN WITH LLE RADICULOPATHY, STRENGTHEN AND STRETCH, SAFE EXERCISES PLEASE CONTACT PATIENT TO SCHEDULE/ EVAL AND TREAT LOW BACK PAIN WITH LLE RADICULOPATHY Referring Physician: Lacho Cavanaugh, Neurosurgery, Encounter Date: 11/16/2020 Results Created Date Observation Date Name Description Value Unit Range Abnormal Flag LastModifiedBy Organization Detail LastModifiedTime 11/18/19 17 11/16/2016 XR, lumba r spine No observ ation record ed. [facility] [address] [facility], [place], [address], 11/18/2016 09:41:13 11/21/19 21 11/20/2020 facet lumba r EXAM: FLUORO SCOPIC -GUIDE D LUMBAR FACET JOINT STEROI D INJECT ION LOCATI ON: [facility] Amaris christelle DATE/T KIMI: 021 9:54 AM INDICA TION: Low back pain. Reques t for bilate ral L4-5 facet inject ions. PROCED URES PERFOR MED: 1. FLUORO SCOPIC -GUIDE D BILATE RAL L4 LUMBAR FACET JOINT STEROI D INJECT ION. 2. INJECT ION OF CONTRA ST. 3. INJECT ION OF ANESTH ETIC AND STEROI D. PROCED URE: Prior imagin g was review ed. After discus georgie of risks and benefi ts of fluoro scopic ally-g uided inject ion, the patien t agreed to procee d. Under steril e condit ions and after admini strati on of local anesth etic, a 5 22 gauge spinal needle was insert ed into each of the bilate ral L4-5 facet joints using a silk screen layout drafter ior-la teral approa ch. Fluoro scopic images and a small amount of contra st confir med needle tip within the facet joint withou t eviden ce of vascul ar uptake . A total of 1 mL of triamc inolon e (40 mg/mL) and 1 mL 1% preser vative -free lidoca ine were then inject ed into each facet. The patien t tolera hunter the proced ure withou t diffic ulty and left the office in good condit ion. MEDICA TIONS: 2 ml Triamc inolon e, 2 ml Omnipa que 180, 7 ml Lidoca ine Discar ded: 3 ml Omnipa que 180 TOTAL FLUORO SCOPY TIME (sec): 54.9 NUMBER OF IMAGES : 6 POSTPR OCEDUR E ASSESS MENT: The patien t was follow ed in our office for 30 minute s after comple tion of the inject ion. The patien t report ed a prepro cedure pain level of 3-5 out of 10 and a postpr ocedur e pain level of 1-3 out of 10. IMPRES GEORGIE: 1. Techni win succes sful bilate ral L4-5 lumbar facet joint steroi d inject ions. This report was electr onical ly interp reted by: DR. Maya flores [facility] [address], [place], [address], 11/20/2020 16:31:26 Result Notes None recorded. Problems Name Status Onset Date Resolution Date Notes Provider Name and Address Organization Details Recorded Time Low back pain Active 11/17/19 21 [place] - [facility] 11/16/2020 10:04:40 Radicular pain Active 11/17/19 21 LEFT LOWER EXTREMITY [place] Vasques - [facility] 11/16/2020 10:06:46 Problem Notes None recorded. Procedures Surgical History None recorded. Imaging Results Imaging Date Name Status LastModified by Dania john Details LastModified Time 11/16/2016 XR, lumbar spine completed [facility] [address], [place], [address], 11/18/2016 09:41:13 11/20/2020 facet lumbar completed lola [facility] [address], [place], [address], 11/20/2020 16:31:26 Procedure Notes None recorded. Medical Equipment None Reported. Medications Name Sig Start Date Stop Date Status Note LastModified by Organization Details LastModified Time cyclobenzapr ine 10 mg tablet active Not Available Not Available Not Available clindamycin HCl 300 mg capsule TAKE 1 CAPSULE BY MOUTH THREE TIMES DAILY UNTIL GONE active Not Available Not Available N ot Available ibuprofen 800 mg tablet active Not Available Not Available Not Available tizanidine 4 mg tablet TAKE 1 TABLET BY MOUTH EVERY 6 HOURS NEEDED FOR SPASM active Not Available Not Available No t Available sumatriptan 100 mg tablet active Not Available Not Available Not Available hydrocodone 5 mg-acetamino phen 325 mg tablet TAKE 1 TABLET BY MOUTH EVERY 6 HRS NEEDED PAIN active Not Available Not Available Not Available sucralfate 1 gram tablet TAKE 1 TABLET BY MOUTH FOUR TIMES DAILY NEEDED NAUSEA active Not Available Not Available No t Available ondansetron HCl 4 mg tablet TK 1 TO 2 TS PO UP TO BID PRF NAUSEA active Not Available Not Available No t Available prednisone 20 mg tablet active Not Available Not Available Not Available nortriptylin e 25 mg capsule active Not Available Not Available Not Available oxycodone-ac etaminophen 5 mg-325 mg tablet active Not Available Not Available Not Available metocloprami de 5 mg tablet active Not Available Not Available Not Available divalproex ER 500 mg tablet,exten ded release 24 hr active Not Available Not Available Not Available omeprazole 20 mg capsule,elizabeth yed release TAKE 1 CAPSULE BY MOUTH EVERY DAY active Not Available Not Available No t Available diclofenac sodium 75 mg tablet,delay ed release TAKE 1 TABLET BY MOUTH EVERY 12 HOURS NEEDED FOR PAIN active Not Available Not Available No t Available oxycodone-ac etaminophen 7.5 mg-325 mg tablet active Not Available Not Available No t Available methylpredni solone 4 mg tablets in a dose pack FOLLOW PACKAGE DIRECTIONS active Not Available Not Available N ot Available Vitamin D2 1,250 mcg (50,000 unit) capsule active Not Available Not Available Not Available ondansetron 4 mg disintegrati ng tablet TAKE 1 TABLET BY MOUTH EVERY 8 HOURS NEEDED NAUSEA active Not Available Not Available No t Available naproxen 500 mg tablet active Not Available Not Available No t Available oxycodone 5 mg tablet active Not Available Not Available No t Available hydroxyzine pamoate 25 mg capsule active Not Available Not Available N ot Available cyclobenzapr ine 5 mg tablet active Not Available Not Available Not Available zonisamide 25 mg capsule TK 1 C PO HS FOR 2 WEEKS. INCREASE TO 2 PILLS active Not Available Not Available No t Available Senexon-S 8.6 mg-50 mg tablet active Not Available Not Available Not Available Vitals None Recorded Social History None recorded. Functional Status None recorded. Mental Status None recorded. Family History Nothing Reported. Medical History No medical history recorded. Gynecological HistoryNo gynecological history recorded. Obstetrics History GPAL:G 0 P 0 0 0 0 Past Encounters Encounter ID Performer Location Encounter Start Date Encounter Closed Date Diagnosis/Indication [id number] [facility] Office [address] [place] [address] 10/24/2016 15:52:34 10/24/2016 17:02:17 [id number] [facility] Office [address] [facility] [address] [place] [address] 11/06/2016 13:57:45 11/06/2016 15:19:10 [id number] [facility] - () [address] [place] [address] 11/19/2016 09:27:57 11/21/2016 09:30:26 [id number] [facility] Office [address] [facility], [address] [place] [address] 12/16/2016 11:04:47 12/16/2016 11:27:06 [id number] [facility] [place] Office [address] [facility], [facility] [address] [place] [address] 11/15/2020 14:13:40 11/15/2020 14:56:28 Health Concerns Section Related Observation LastModified by Organization Detai ls LastModified Time None Recorded Concern Status LastModified by Organization Details LastModified Time None Recorded Advance Directives Directive None Recorded Payers Encounter Date Sequence Insurance Name Policy Number Policy Martinez Covered Member ID Martinez Member ID Guarantor Name 11/15/2020 1 [employer] - DOS PRIOR TO 2021 (MEDICAID REPLACEMENT - HMO) DARIANA Vernon [id number] Milka Vernon 12/16/2016 1 [employer] - DOS PRIOR TO 2021 (MEDICAID REPLACEMENT - HMO) MEMFREDDY Vernon [id number] Milka Vernon 11/16/2016 1 [employer] - DOS PRIOR TO 2021 (MEDICAID REPLACEMENT - HMO) DARIANA Vernon [id number] Milka Vernon 11/06/2016 1 [employer] - DOS PRIOR TO 2021 (MEDICAID REPLACEMENT - HMO) MEMFREDDY Vernon [id number] Milka Vernon 10/24/2016 1 [employer] - DOS PRIOR TO 2021 (MEDICAID REPLACEMENT - HMO) DARIANA Vernon [id number] Milka Vernon Notes Date Note Type Note Provider Name and Address Organization Details Recorded Time 10/24/2016 text/html HPI Notes: I saw Milka Vernon as a new patient in neurosurgery clinic today for Dr. Cavanaugh. The patient reports approximately one month ago, she was lifting her [id number] when she twisted and developed acute onset of low back pain. She describes the pain as severe low back pain that initially radiated down bilateral posterior legs to the level of her calves. She described this as a shooting sensation. Her back pain is significantly worse than her leg pain. She also reports numbness at the bottom of both feet. Her pain is worse with activity or if she sits or lies for too long. It feels better when she takes medications or sits on a heating pad. She has been prescribed both Percocet and Flexeril, which helped take the edge of. The patient reports she underwent an epidural steroid injection through [facility] and does note this has taken away the shooting pain in her legs. While she is still uncomfortable, she is somewhat improved compared to one month ago. [address] [facility] [place] - [facility] 10/25/2016 08:57:02 11/06/2016 text/html HPI Notes: I saw Milka Vernon back in Neurosurgery Clinic today for Dr. Cavanaugh. She is being followed for low back pain and bilateral S1 radiculopathy. When she was seen 2 weeks ago, her symptoms were starting to improve. However, they have now continued to worsen. She completed 1 course of physical therapy and this significantly worsened her pain. Her pain starts in her right buttock, extends down her posterior leg to the bottom of her foot and involves all of her toes. She also reports right foot numbness. She has some symptoms in the left leg though significantly worse in the right. She appears very uncomfortable at the appointment today. Rd [facility] [place] - [facility] 11/07/2016 09:58:32 12/16/2016 text/html HPI Notes: I saw Milka Vernon back in Neurosurgery Clinic today for Dr. Cavanaugh. She is approximately one month out from bilateral L3-L4 hemilaminectomies and microdiscectomies on November 16, 2016. She reports slow daily improvements in her pain. She continues to struggle with low back pain, particularly while driving and posterior leg pain, numbness, and tingling. She does report her symptoms are approximately 50% to 60% better than they were prior to surgery. She is now off all narcotics. She is taking ibuprofen and Tylenol as needed and uses heat throughout the day. [address] [place] - [facility] 12/16/2016 17:52:10 11/15/2020 text/html HPI Notes: I had the pleasure of seeing Milka Vernon in clinic today for Dr. Cavanaugh. Milka is a past patient of Dr. Cavanaugh's having undergone an L3-L4 bilateral laminectomies November 16, 2016. Approximately on September 20, 2020, she had onset of low back pain with radicular pain predominantly in her left lower extremity when getting out of bed. She was unable to for a week and a half get dressed by herself. She reports pain through her low back and radiating down the posterior lateral aspect of her legs. About the end of August, she went to her primary clinic and her legs gave out on her. She was trialed on a steroid pack and that was helpful and that she could move around better and she was starting to be able to do more of her activities of daily living. She also was placed on a muscle relaxer, which she is still on and she states this helps as well. She was taking ibuprofen, but need to stop that because she developed an ulcer, so is now taking Tylenol and is also icing. She has not had any recent physical therapy or injections. She states that ambulating exacerbates her low back pain and when it becomes bad, she again has the radicular pain, left greater than right. It does not go beyond the knee. She is a smoker. She previously was working out in the gym doing the treadmill crunches etc and feels scared to go back to doing that activity given what has happened. She denies any bowel or bladder issues or any weakness in her legs currently, but does feel that the pain limits her movements. She had a workup at [facility] who had recommended that she have injections done in her back, but she wanted to talk with Dr. Cavanaugh, given he was her previous surgeon for a 2nd opinion. [facility] [place] - [facility] 11/16/2020 10:08:48 OBGyn Episode No OBEpisode recorded.
--- OUTSIDE RECORDS SUMMARY | 2023-04-12 22:23 | XMS_ITS | Patient Health Record ---
Author Name Unknown Organization [facility] ystal Address [address] [place] [address] Care Team Providers Care Metal Cut Off Saw Tender Name Role Phone Troy Gilliam Primary Care Provider ALLERGIES Allergen (clinical drug ingredient) Drug/Non Drug Allergy documented on EMR Reaction Allergy Type Onset Date Status topiramate Topiramate mood swings and ineffective for headaches Drug Allergy Active Nortripytline HCl Wt Gain, Tinnitus Drug Allergy Active PENICILLIN DRUGS hives Drug Allergy Active venlafaxine Venlafaxine HCl ER diarrhea Drug Allergy Active gabapentin Gabapentin ringing in ears Drug Allergy Active RESULTS Component Value Reference Range Notes Lipid Panel Reviewed date:09/10/2022 10:06:38 PM Interpretation:Abnormal Performing Lab: Notes/Report: Is the patient fasting? Yes Testing performed at [facility], [address] [place], [place] [address] [address], Loss Prevention Auditor Cindy Servin MD, CLIA# [id number] Cholesterol 205 <200 mg/dL High Density Lipoprotein 33 40-60 mg/dL Triglycerides 275 35-160 mg/dL Cholesterol/HDL Ratio 6.2 2.5-5.7 Low Density Lipoprotein 117 <130 mg/dL Glucose Reviewed date:09/10/2022 10:06:38 PM Interpretation:Normal Performing Lab: Notes/Report: Is the patient fasting? Yes [facility], [address] [place] [address], Loss Prevention Auditor Cindy Servin MD, CLIA# [id number] Glucose 90 65-99 mg/dL REASON FOR REFERRAL Reason Bariatric surgery co nsultation, evaluate and treat Diagnosis 1 Obese (E66.9) Referral Organization [facility] Referring Provider First Name Troy Referring Provider Last Name Mane Referring Provider Speciality [facility] shanon Referred Provider [facility] Referred Provider Specialty Bariatric Cowan cuco General Notes Queenie Oneil 023 03:18:54 PM > Referral/Document faxed. Referral Priority Routine MEDICATIONS Medication SIG (Take, Route, Frequency, Duration) Notes Start Date End Date Status Lidocaine-Prilocaine 2.5-2.5 % small amount to low back Externally twice a day, as needed 06/04/2021 Active Biotin 35485 MCG 1 tablet Orally Once a day for 30 day(s) Active Multivitamins 1 tablet a day A ctive Turmeric Curcumin - as directed Orally 1500mg 2 tablet a day Active Vitamin D3 50 MCG (1999 [place]) 2 capsule Orally Once a day Active tylenol 1 tab Oral for 14 days Active Omeprazole 20 MG 1 capsule 30 minutes before morning meal Orally Once a day 12/18/2021 Active IMMUNIZATIONS Vaccine Route Administration Date Status Comme nts Tdap (Boostrix), 10+yrs IM Intramuscular 12/30/2014 Admini stered SOCIAL HISTORY Sex Assigned At : Social History Observation Description Sex Assigned At Unknown PROBLEMS Problem Type ICD Code Onset Dates Problem Status W/U Status Risk SNOMED Code Notes Problem Perimenopause (N95.1) Active confirmed 121969485764197 Problem Lumbar disc disease (M51.9) Active confirmed 521621183 Problem Chronic daily headache (R51) Active confirmed 428063749 Problem Anal skin tag (K64.4) Active confirmed 004360124 Problem Body mass index (BMI) 34.0-34.9, adult (Z68.34) Active confirmed Body mass ind ex 30.00 to 34.99 ([id number]) Problem Obese (E66.9) Active confirmed Obese (4 15018255) Problem Gastroesophageal reflux disease, esophagitis presence not specified (K21.9) Active confirmed 163379684 Problem Peptic ulcer disease (K27.9) Active confirmed 21742918 Problem Acute left-sided low back pain with left-sided sciatica (M54.42) Active confirmed 179539364 Problem Acute bilateral low back pain with left-sided sciatica (M54.42) Active confirmed 341807084 VITAL SIGNS Heart Rate 70 /min 09/05/2022 Temperature 98.1 degrees Fahrenheit 09/05/2022 Blood pressure diastolic 76 mm Hg 09/05/2022 Oximetry 97 % 09/05/2022 Height 5 ft 10 in in 09/05/2022 Blood pressure systolic 128 mm Hg 09/05/2022 Weight 246 lbs 09/05/2022 BMI 35.29 kg/m2 09/05/2022 Encounters Encounter Location Date Provider Diagnosis [facility] [address] [place] [address] 08/02/2022 Troy Gilliam Acute left-sided low back pain with left-sided sciatica M54.[facility] [address] [place] [address] 09/05/2022 Troy Gilliam Physical exam, annual Z00.00 ; Diabetes mellitus screening Z13.1 ; Screening for heart disease Z13.6 ; Breast cancer screening by mammogram Z12.31 and Obese E66.9 ASSESSMENTS Encounter Date Diagnosis Assessment Notes Treatment Notes Treatment Clinical Notes 09/05/2022 Physical exam, annual (ICD-10 - Z00.00) Recommend visit for preventive examination every year. Recommend annual influenza vaccination Discussed findings on examination. Discussed healthy lifestyle, diet, exercise, and weight management. Discussed schedule of regular preventive screening testing, including pap smears, lipid, and glucose testing. Will contact patient with pending laboratory results. 09/05/2022 Diabetes mellitus screening (ICD-10 - Z13.1) 08/02/2022 Acute left-sided low back pain with left-sided sciatica (ICD-10 - M54.42) 09/05/2022 Screening for heart disease (ICD-10 - Z13.6) 09/05/2022 Breast cancer screening by mammogram (ICD-10 - Z12.31) Arrange mammogram at your earliest convenience 09/05/2022 Obese (ICD-10 - E66.9) 09/05/2022 Other This note was created using voice recognition software and/or physician entered typing. Because of this, unintended word substitutions and/or spelling or typing errors may be noted PLAN OF TREATMENT Future Test Test Name Order Date Mammogram, diagnostic, left breast 07/26 Mammogram Digital, CAD screening, unilat eral right breast 07/26/2021 Mammogram Digital, CAD screening, bilate ral 09/05/2022 Insurance Providers Payer Name Payer Address Payer Phone Subscriber Number Group Number Insured Name Patient Relationship to Insured Coverage Start Date Coverage End Date [facility] [facility] [address] [place], [place] [id number] Milka Pandya Self - patient is the insured 2 MEDICAL (GENERAL) HISTORY Medical History History ICD Code SAB2 Tension type headaches. Negative brain M [place], 04/24/2010 Common migraine, failed multiple medicat ions. Neurology management 2014 Lumbar disc disease, surgery done by Dr. Lacho Cavanaugh, approximately 2017 normal colonoscopy, 2016 Surgical History Surgery Date(Month/Year) hysterectomy, ovaries left i ntact. Done for endometriosis. Done through [facility] 2009 laparoscopy 2008 [facility] 1996 Hospitalization History Reason Date(Month/Year) 3 childbirth
[2023-04-12 22:26] LABS: Basophils Absolute Auto 0.03 K/uL (0.00-0.30); Basophils Percent Auto 0.3 % (0.0-3.0); Eosinophils Absolute Auto 0.34 K/uL (0.00-0.50); Eosinophils Percent Auto 3.5 % (0.0-7.0); Hematocrit 44.7 % (33.0-51.0); Hemoglobin* 15.1 gm/dL (12.0-16.0); Immature Granulocytes Abs Auto 0.01 K/uL (0.00-0.30); Immature Granulocytes Pct Auto 0.1 %; Lymphocytes Percent Auto 35.9 % (20-44); Mean Corpuscular HGB Conc 34 gm/dL (32-36); Mean Corpuscular Hemoglobin 30 pg (26-34); Mean Corpuscular Volume 88 fL (80-100); Monocytes Percent Auto 5.7 % (0.0-11.0); Neutrophils Percent Auto 54.5 % (42.0-72.0); Platelet Count* 225 K/uL (140-440); RDW Coefficient of Variation % 12.3 % (11.5-15.5); White Blood Count* 9.74 K/uL (4.50-11.00)
[2023-04-12 22:27] LABS: Slide Review Reflex No
[2023-04-12] MEDS: KETOROLAC 30 MG/ML inj IVP (22:35)
[2023-04-12] MEDS: 0.9 % SODIUM CHLORIDE 1000 ml 1,000 ML IV (22:35)
[2023-04-12] MEDS: MORPHINE 4 MG/ML INJ IVP (22:36)
[2023-04-12] MEDS: ONDANSETRON 2 MG/ML inj 4 MG IVP (22:36)
[2023-04-12 22:42] LABS: Albumin* 4.5 g/dL (3.3-5.0); Chloride* 107 mmol/L (96-114)
[2023-04-12 22:43] LABS: Potassium* 3.9 mmol/L (3.6-5.1); Sodium* 139 mmol/L (135-149)
[2023-04-12 22:45] LABS: Alkaline Phosphatase* 96 U/L (40-150); Anion Gap 9 mEq/L (7-15); Aspartate Amino Transferase* 30 U/L (12-35); Bilirubin Direct* 0.2 mg/dL (0.0-0.5); Bilirubin Total* 0.4 mg/dL (0.1-1.5); Carbon Dioxide* 23 mmol/L (20-32); Creatinine* 0.7 mg/dL (0.5-1.5); Estimated Glomerular Filt Rate 106 ml/min; Total Protein* 7.7 g/dL (6.0-8.3)
[2023-04-12 22:46] LABS: Alanine Aminotransferase* 39 U/L (4-35); Blood Urea Nitrogen* 25 mg/dL (5-24); Glucose* 132 mg/dL (60-115); Lipase* 66 U/L (23-300)
[2023-04-12 22:57] LABS: D Dimer Quantitative* 0.36 ug/ml (0.00-0.50)
[2023-04-12 23:04] LABS: NT Pro B Type NatriureticPept* 23 pg/mL; Troponin I* < 0.01 ng/mL (0.01-0.04)
[2023-04-12 23:32] LABS: Appearance Urine Clear (Clear); Bilirubin Urine Negative (Negative); Blood Urine Negative (Negative); Color Urine Yellow (Yellow); Glucose Urine Negative (Negative); Ketones Urine Negative (Negative); Leukocyte Esterase Urine Negative (Negative); Nitrite Urine Negative (Negative); Protein Urine Negative (Negative); Specific Gravity Urine >= 1.030 (1.000-1.030); Urobilinogen Urine 0.2 (0.2-1.0); pH Urine 5.5 (5.0-8.5)
[2023-04-12 23:53] LABS: Bacteria Urine Few; RBC Urine 0-2 (0-2); Squamous Epithelial Cell Urine Few (None-Few); WBC Urine 0-2 (0-5)
== END 2023-04-13 00:03 | disposition home or self-care (01) ==
PROVIDERS: Emergency Provider Family Medicine
DX: R10.11 Right upper quadrant pain (principal)
CPT/HCPCS: 36415; 71045; 80048; 80076; 81001; 83690; 83880; 84484; 85025; 85379; 86140; 87086; 93005; 94761; 96361; 96374; 96375; 99284; 99285; J1885; J2270; J2405; J7030

== ENCOUNTER 2023-04-15 14:52 | Outpatient (CLI) | payer BC, SELFPAY ==
--- OUTSIDE RECORDS SUMMARY | 2023-04-15 14:56 | XMS_ITS | Referral Summary ---
Author Name Unknown Organization [facility] Address [address] [place] [address] Care Team Providers Care Oracle Solutions Architect Name Role Phone No Ref-Primary, Physician Primary [...] Comments Blood Pressure 116/86 01/08/2021 8:14 AM DEGREE CLERK Pulse 78 01/08/2021 8:14 AM DEGREE CLERK Temperature 36.3 ??C (97.4 ??F) 01/08/2021 8:14 AM CS T Respiratory Rate 16 01/08/2021 8:14 AM DEGREE CLERK Oxygen Saturation 93% 01/08/2021 8:14 AM DEGREE CLERK Inhaled Oxygen Concentration - - Weight 95.3 kg (210 lb) 06/22/2018 9:48 PM CDT Height 177.8 cm (5' 10) 10/31/2015 9:07 AM CDT Body Mass Index 30.13 10/31/2015 9:07 AM CDT Plan of Treatment Not on file Care Teams Oracle Solutions Architect Relationship Specialty Start Date End Date No Ref-Primary, Physician PCP - General 10/31/15 Troy Gilliam [address] [address] Family Medicine 11/08/20
--- OUTSIDE RECORDS SUMMARY | 2023-04-15 14:56 | XMS_ITS | Encounter Summary ---
Author Name Unknown Organization [facility] Address [address] [place] [address] Care Team Providers Care Consumer Educator Name Role Phone No Ref-Primary, Physician Primary [...] documented as of this encounter Care Teams Consumer Educator Relationship Specialty Start Date End Date No Ref-Primary, Physician PCP - General 10/31/15 Troy Gilliam [address] [address] Family Medicine 11/08/20 documented as of this encounter
--- OUTSIDE RECORDS SUMMARY | 2023-04-15 14:56 | XMS_ITS | Clinical Summary ---
Author Name Unknown Organization [facility] Address [address] [place] [address] Care Team Providers Care Oil Burner Name Role Phone No Ref-Primary, Physician Primary [...] Comments Blood Pressure 116/86 01/08/2021 8:14 AM IT APPLICATIONS ANALYST Pulse 78 01/08/2021 8:14 AM IT APPLICATIONS ANALYST Temperature 36.3 ??C (97.4 ??F) 01/08/2021 8:14 AM CS T Respiratory Rate 16 01/08/2021 8:14 AM IT APPLICATIONS ANALYST Oxygen Saturation 93% 01/08/2021 8:14 AM IT APPLICATIONS ANALYST Inhaled Oxygen Concentration - - Weight 95.3 [...] age to complete this topic Care Teams Oil Burner Relationship Specialty Start Date End Date No Ref-Primary, Physician PCP - General 10/31/15 Troy Gilliam [address] [address] Family Medicine 11/08/20
--- OUTSIDE RECORDS SUMMARY | 2023-04-15 14:57 | XMS_ITS | Data Portability ---
Author Name Unknown Address [address] [place] [address] Phone [phone] Organization [facility] - (IP) Address [address] [place] [address] Care Team Providers Care Managed Care Liaison Name Role Phone ALYSSA RAMIREZ Primary Care Provider TEJAS CRAWFORD Referring Provider Assessment Encounter Date Assessment Date Assessment LastModified [...] which she would like to do at [facility] as she had previously started [...] r spine No observ ation [facility] [address] [facility], [place], [address], 11/18/2016 09:41:13 11/21/19 21 11/20/2020 facet lumba [...] bilate ral L4-5 facet joints using a skin carver ior-la teral approa ch. Fluoro scopic images [...] ly interp reted by: DR. Maya flores [facility] [address], [place], [address], 11/20/2020 16:31:26 Result Notes None recorded. Problems Name Status Onset Date Resolution Date Notes Provider Name and Address Organization Details Recorded Time Low back pain Active 11/17/19 21 [place] - [facility] 11/16/2020 10:04:40 Radicular pain Active 11/17/19 21 LEFT LOWER EXTREMITY JUANI Vasques - [facility] 11/16/2020 10:06:46 Problem Notes None recorded. Procedures Surgical History None recorded. Imaging Results Imaging Date Name Status LastModified by Dania john Details LastModified Time 11/16/2016 XR, lumbar spine completed [facility] [address], [place], [address], 11/18/2016 09:41:13 11/20/2020 facet lumbar completed lola [facility] [address], [place], [address], 11/20/2020 16:31:26 Procedure Notes None recorded. Medical [...] Encounter Start Date Encounter Closed Date Diagnosis/Indication [id number] [facility] Office [address] [place] [address] 10/24/2016 15:52:34 10/24/2016 17:02:17 [id number] [facility] Office [address] [facility] [address] [place] [address] 11/06/2016 13:57:45 11/06/2016 15:19:10 [id number] [facility] - () [address] [place] [address] 11/19/2016 09:27:57 11/21/2016 09:30:26 [id number] [facility] Office [address] [facility], [address] [place] [address] 12/16/2016 11:04:47 12/16/2016 11:27:06 [id number] Idalia Chua [place] Office [address] [facility], [facility] [place] [address] [place] [address] 11/15/2020 14:13:40 11/15/2020 14:56:28 Health Concerns Section [...] 2021 (MEDICAID REPLACEMENT - HMO) DARIANA Vernon [id number] Milka Vernon 12/16/2016 1 [employer] - DOS PRIOR TO 2021 (MEDICAID REPLACEMENT - HMO) MEMFREDDY Vernon [id number] Milka Vernon 11/16/2016 1 [employer] - DOS PRIOR TO 2021 (MEDICAID REPLACEMENT - HMO) DARIANA Vernon [id number] Milka Vernon 11/06/2016 1 [employer] - DOS PRIOR TO 2021 (MEDICAID REPLACEMENT - HMO) MEMFREDDY Vernon [id number] Milka Vernon 10/24/2016 1 [employer] - DOS PRIOR TO 2021 (MEDICAID REPLACEMENT - HMO) DARIANA Vernon [id number] Milka Vernon Notes Date Note Type Note Provider Name and Address Organization Details Recorded Time 10/24/2016 text/html HPI Notes: I saw Milka Vernon as a new patient in neurosurgery clinic today for Dr. Cavanaugh. The patient reports approximately one month ago, she was lifting her bpodha-ke-kea when she twisted and developed acute onset [...] she underwent an epidural steroid injection through [facility] and does note this has taken away the shooting pain in her legs. While she is still uncomfortable, she is somewhat improved compared to one month ago. [address] [facility] [place] - [facility] 10/25/2016 08:57:02 11/06/2016 text/html HPI [...] uncomfortable at the appointment today. Rd slaughter [place] - [facility] 11/07/2016 09:58:32 12/16/2016 text/html HPI [...] uses heat throughout the day. Rd [place] [facility] 12/16/2016 17:52:10 11/15/2020 text/html HPI [...] her movements. She had a workup at [facility] who had recommended that she have injections done in her back, but she wanted to talk with Dr. Cavanaugh, given he was her previous surgeon for a 2nd opinion. Idalia [place] - [facility] 11/16/2020 10:08:48 OBGyn Episode No OBEpisode recorded.
--- OUTSIDE RECORDS SUMMARY | 2023-04-15 14:57 | XMS_ITS | Clinical Summary ---
Author Name Unknown Organization [facility] Address [place], [place] [address] Care Team Providers Care Foot Cutter Name Role Phone Troy Gilliam MD Primary [...] 6:44 AM 11/16/2016 10:26 AM Care Teams Foot Cutter Relationship Specialty Start Date End Date Troy Gilliam MD PCP - General Family Practice 05/06/22
--- OUTSIDE RECORDS SUMMARY | 2023-04-15 14:57 | XMS_ITS | Patient Health Record ---
Author Name Unknown Organization [facility] Address [address] [place] [address] [place] [address] Care Team Providers Care Welding Machine Operator Gas Metal Arc Name Role Phone TEJAS CRAWFORD MD Primary Care Provider Unavailab le SELF, SELF Unavailable Unavailable Jaqueline Dawson Unavailable [phone] ALLERGIES Allergen (clinical drug ingredient) Drug/Non Drug Allergy documented on EMR Reaction Allergy Type Onset Date Status nortriptyline Nortriptyline HCl weight nia/tinnitus Drug Allergy Active topiramate Topiramate Mood swings & ineffective for headaches Drug Allergy Active Penicillin hives Drug Allergy Active REASON FOR REFERRAL Reason CHRISTINE Diagnosis 1 Obesity (BMI 30-39.9 ) (E66.9) Referral Organization [facility] Referring Provider First Name Jaqueline Referring Provider Last Name Samir Referring Provider Speciality Nurse Carina peacock Referred Provider HAYDEE CUNHA Referred Provider Specialty Photoengraver General Notes Kera Chaudhary 10/14 09:18:45 AM > Pt needs appt with Jet HUBBARD Rosalie 10/14/2022 09:19:41 AM > Faxed Jet chaves Rosalie 03/28/2023 02:02:12 PM > See TE 03/28/23- address referral Referral Priority Routine Referral Appointment Date 10/10/2022 Reason psych eval Diagnosis 1 Obesity (BMI 30-39.9 ) (E66.9) [facility] Referring Provider First Name Jaqueline Referring Provider [...] Obesity (BMI 30-39.9 ) (E66.9) Referral Organization [facility] [place] [facility] Referring Provider First Name Jaqueline Referring Provider [...] Problem Obesity (BMI 30-39.9) (E66.9) Active confirmed 938432245 Problem BMI 35.0-35.9,adult (Z68.35) Active confirmed 546658801 Problem High cholesterol (E78.00) Active confirmed 78130402 Problem NAFLD (nonalcoholic fatty liver disease) (K76.0) Active confirmed 8126915245 VITAL SIGNS Heart Rate 68 /min 10/10/2022 Temperature 97.6 degrees Fahrenheit 10/10/2022 Respiratory Rate 16 /min 10/10/2022 Height-cm 177.17 cm 10/10/2022 Blood pressure diastolic 76 mm Hg 10/10/2022 Weight-kg 110.22 kg 10/10/2022 Height 69.75 in 10/10/2022 Blood pressure systolic 112 mm Hg 10/10/2022 Weight 243.0 lbs 10/10/2022 BMI 35.11 kg/m2 10/10/2022 Encounters Encounter Location Date Provider Diagnosis JOYCE Gonzalez at [address] [place] [address] 10/10/2022 Jaqueline Dawson NAFLD (nonalcoholic fatty liver disease) K76.0 ; Obesity (BMI 30-39.9) E66.9 ; BMI 35.0-35.9,adult Z68.35 and High cholesterol E78.00 JOYCE Gonzalez at [address] [place] [address] 09/24/2022 Jaqueline COOK [place] at [address] [place] [address] 09/25/2022 Jaqueline COOK [place] at [address] [place] [address] 10/14/2022 Jaqueline COOK [place] at [address] [place] [address] 11/08/2022 Jaqueline [place] at [address] [place] [address] 02/28/2023 Jaqueline [place] at [address] [place] [address] 03/28/2023 Jaqueline Dawson ASSESSMENTS Encounter Date Diagnosis [...] Insured Coverage Start Date Coverage End Date [employer] [address] [place] [phone] [id number] EMILYNAYELYJOSIAHIMELDA GUTIERREZ Self - patient is [...]
--- OUTSIDE RECORDS SUMMARY | 2023-04-15 14:57 | XMS_ITS | Patient Health Record ---
Author Name Unknown Organization [facility] Address [address] [place] [address] Care Team Providers Care Heddler Name Role Phone Troy Gilliam Primary Care [...] date:09/10/2022 10:06:38 PM Interpretation:Abnormal Performing Lab: Notes/Report: [place] [facility] [place] [address] [place], [place] [address]., [place] [address], Running Instructor Cindy Servin MD, CLIA# [id number] Is the patient fasting? Yes Cholesterol 205 <200 mg/dL High Density Lipoprotein 33 40-60 mg/dL Triglycerides 275 35-160 mg/dL Cholesterol/HDL Ratio 6.2 2.5-5.7 Low Density Lipoprotein 117 <130 mg/dL Glucose Reviewed date:09/10/2022 10:06:38 PM Interpretation:Normal Performing Lab: Notes/Report: Testing performed at [facility], [address] [place] [address], Running Instructor Cindy Servin MD, CLIA# [id number] Is the patient fasting? Yes Glucose 90 65-99 mg/dL REASON FOR REFERRAL Reason Bariatric surgery co nsultation, evaluate and treat Diagnosis 1 Obese (E66.9) Referral Organization [facility] Referring Provider First Name Troy Referring Provider Last Name Mane Referring Provider Speciality Family Med shanon Referred Provider [facility] Referred Provider Specialty Bariatric Cowan cuco General Notes Queenie Oneil 023 03:18:54 PM > Referral/Document faxed. Referral Priority Routine MEDICATIONS Medication SIG (Take, Route, Frequency, Duration) Notes Start Date End Date Status Lidocaine-Prilocaine 2.5-2.5 % small amount to low back Externally twice a day, as needed 06/04/2021 Active Biotin 33225 MCG 1 tablet Orally Once a day [...] Code Notes Problem Perimenopause (N95.1) Active confirmed [id number] Problem Lumbar disc disease (M51.9) Active confirmed 957666949 Problem Chronic daily headache (R51) Active confirmed 059320178 Problem Anal skin tag (K64.4) Active confirmed 763607393 Problem Body mass index (BMI) 34.0-34.9, adult (Z68.34) Active confirmed Body mass ind ex 30.00 to 34.99 (398700776088246) Problem Obese (E66.9) Active confirmed Obese (4 63723361) Problem Gastroesophageal reflux disease, esophagitis presence not specified (K21.9) Active confirmed 819586367 Problem Peptic ulcer disease (K27.9) Active confirmed 36731402 Problem Acute left-sided low back pain with left-sided sciatica (M54.42) Active confirmed 245606517 Problem Acute bilateral low back pain with left-sided sciatica (M54.42) Active confirmed 474415372 VITAL SIGNS Heart Rate 70 /min 09/05/2022 Temperature 98.1 degrees Fahrenheit 09/05/2022 Oximetry 97 % 09/05/2022 Blood pressure diastolic 76 mm Hg 09/05/2022 Height 5 ft 10 in in 09/05/2022 Blood pressure systolic 128 mm Hg 09/05/2022 Weight 246 lbs 09/05/2022 BMI 35.29 kg/m2 09/05/2022 Encounters Encounter Location Date Provider Diagnosis [facility] [address] [place] [address] 08/02/2022 Troy Gilliam Acute left-sided low back pain with left-sided sciatica M54.[address] [address] 04/13/2023 Troy Mane [address] [address] 09/05/2022 Troy Gilliam Physical exam, annual Z00.00 ; Diabetes mellitus screening Z13.1 ; Screening for heart disease Z13.6 ; Breast cancer screening by mammogram Z12.31 and Obese E66.9 ASSESSMENTS Encounter Date Diagnosis Assessment Notes Treatment Notes Treatment Clinical Notes 08/02/2022 Acute left-sided low back pain with left-sided sciatica (ICD-10 - M54.42) 09/05/2022 Physical exam, annual (ICD-10 - Z00.00) Recommend visit for preventive examination every year. Recommend annual influenza vaccination Discussed findings on examination. Discussed healthy lifestyle, diet, exercise, and weight management. Discussed schedule of regular preventive screening testing, including pap smears, lipid, and glucose testing. Will contact patient with pending laboratory results. 09/05/2022 Diabetes mellitus screening (ICD-10 - Z13.1) 09/05/2022 Screening for heart disease (ICD-10 - [...] Insured Coverage Start Date Coverage End Date [facility] [address] [place], [place] [phone] [id number] Milka Pandya Self - patient is the [...]
--- NOTE | 2023-04-15 15:00 | US_ITS ---
Final Report Patient: IMELDA DELA CRUZ Facility:?[facility] Patient ID:?[id number] Site Patient ID:?[id number]. Site :?[id number] Study:?US Abdomen RUQ-04/15/2023 3:32:50 PM Ordering Physician:?ROBBIN PETERSEN Final Report: INDICATION: Epigastric and right upper quadrant pain COMPARISON: CT 04/22/2020 TECHNIQUE: Real time santana scale imaging and color Doppler analysis was performed of the right upper quadrant. FINDINGS: The liver measures 19.0 cm and is diffusely increased echotexture. There is a normal appearance of the hepatic IVC and proximal abdominal aorta. There is no evidence of ascites. The gallbladder is of normal size and there is no evidence of intraluminal stones or sludge. The gallbladder wall measures 2.3 mm in thickness. The common bile duct is of normal size and measures 3.8 mm in diameter at the level of the rut hepatis. The visualized pancreas appears normal. There is no evidence of a stone or hydronephrosis within the right kidney. The right kidney measures 13.0 cm in length. IMPRESSION: Hepatomegaly with diffuse hepatic steatosis. No intrahepatic mass or ascites. Normal gallbladder. Dictated by Robbin Eduardo MD @ 04/16/2023 6:53:02 AM (Electronic Signature)
== END 2023-04-15 14:53 | disposition home or self-care (01) ==
PROVIDERS: Visit Provider Family Medicine
DX: R10.13 Epigastric pain (principal); R16.0 Hepatomegaly, not elsewhere classified; K76.0 Fatty (change of) liver, not elsewhere classified
CPT/HCPCS: 76705